=== PATIENT | male | born 1950 | race Caucasian/White ===

== ENCOUNTER 2019-12-17 22:09 | Inpatient (IN) | payer MEDICARE, SELFPAY ==
--- NOTE | 2019-12-17 21:49 | ECG_ITS ---
APPROVED REPORT Exam: Resting ECG HR:108 bpm ECG Measurements Heart Rate 108 AXES MN 108 P 61 QRSd 76 QRS 61 QT 320 T 161 QTc 428 <Conclusion> Sinus tachycardia with short MN Left atrial abnormality Late r wave progression Abnormal ECG Electronically signed by : James Rosenthal, 12/20/2019 13:15:54
[2019-12-17 21:54] VITALS: BP 123/79; PULSE 92; RESP 26; TEMP 36.8; O2SAT 96; BMI 18.4
--- NOTE | 2019-12-17 22:04 | XR_ITS ---
PROCEDURE: XR CHEST AP CLINICAL HISTORY: copd COPD, cough, malaise COMPARISON: CT CHEST WO CON from 12/17/2019 FINDINGS: There is mild cardiomegaly without failure. The mediastinum is widened consistent with mass or adenopathy. There is right apical pleural thickening There is increased density in both lower lobes consistent with pneumonia. No acute bony anomalies. IMPRESSION: Mediastinal widening consistent with mass and/or adenopathy with bilateral pneumonia. Suggest chest CT with contrast for further evaluation Dictated by: Sekou Islas MD 12/18/2019 06:23 Electronically signed by Sekou Islas MD in [place] 12/18/2019 06:23
--- NOTE | 2019-12-17 22:04 | CT_ITS ---
PROCEDURE: CT ABDOMEN PELVIS W CON CLINICAL INDICATION: ruq tenderness Right upper quadrant pain and tenderness, malaise, jaundice, weakness COMPARISON: No exams were available for comparison TECHNIQUE: IV Contrast: 75ML OPTIRAY 350 Oral Contrast 20ml Gastroview Axial images obtained with sagittal and coronal reformats. All CT scans at the facility use one or more dose reduction, viz: automated exposure control, ma/kV adjustment per patient size (including targeted exams where dose is matched to indication, i.e. head), or iterative reconstruction technique. FINDINGS: LOWER THORAX: Bilateral pneumonia with trace left-sided effusion along with mediastinal and left hilar adenopathy. Please see chest CT report for further details. ABDOMEN & PELVIS: There is heterogeneous enhancement pattern of the liver nonspecific. No focal liver lesion is evident. Gallstone is present. The spleen, adrenal glands, and pancreas have an unremarkable appearance. No pancreatic mass. No biliary dilatation. No intestinal obstruction or free air. No evidence of appendicitis or diverticulitis. There is scattered thickened small bowel loops as well as thickening of the cecum and ascending colon and descending colon. There is a medium-sized left inguinal hernia which contains a loop of sigmoid colon and a small amount of fluid. No evidence of bowel obstruction. The prostate is mildly enlarged at 4.6 cm. There is a small amount of fluid in the pelvis.. Adenopathy is noted in the periportal region measuring up to 1.6 cm in there is mild retroperitoneal adenopathy on the left superiorly at 1.3 cm. No pelvic adenopathy. 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 IMPRESSION: 1. Scattered thickened small and large bowel loops suggesting enterocolitis. Small amount of fluid is present in the pelvis. 2. Heterogeneous appearance of the liver which could be seen with hepatitis or early cirrhosis. There is mild hepatomegaly measuring 24 cm in transverse dimension. 3. Mild periportal and retroperitoneal adenopathy 4. Cholelithiasis Dictated by: Sekou Islas MD 12/18/2019 09:53 Electronically signed by Sekou Islas MD in [place] 12/18/2019 09:53
[2019-12-17 22:14] LABS: Basophils # 0.2 K/mm3 (0-0.2); Basophils % 3.1 % (0.1-2.0); Chloride 97 mmol/L (98-107); Eosinophils % 0.4 % (0.1-12.0); Hematocrit 38.4 % (42.0-52.0); Hemoglobin 12.2 g/dL (14.1-18.0); Lymphocytes # 0.9 K/mm3 (0.7-4.5); Lymphocytes % 17.4 % (10-50); Mean Corpuscular HGB Conc 31.8 g/dL (31.8-35.4); Mean Corpuscular Hemoglobin 31.4 pg (27.0-31.2); Mean Corpuscular Volume 98.8 fl (80-94); Mean Platelet Volume 9.9 fl (7.4-10.4); Monocytes # 0.1 K/mm3 (0.1-1.0); Monocytes % 1.8 % (1.7-9.3); Neutrophils % 77.3 % (37.0-80.0); Platelet Count 56 K/mm3 (142-424); Red Blood Count 3.89 M/mm3 (4.60-6.20); Red Cell Distribution Width 15.5 % (11.5-17.5); Sodium 144 mmol/L (136-145); White Blood Count 5.2 K/mm3 (4.8-10.8)
[2019-12-17 22:17] LABS: Alanine Aminotransferase 228 U/L (12-78); Alkaline Phosphatase 273 U/L (38-126); Aspartate Amino Transferase 259 U/L (17-59); Bilirubin,Total 9.2 mg/dl (0.2-1.3); Blood Urea Nitrogen 44 mg/dl (9-20); Calcium 9.7 mg/dl (8.4-10.2); Carbon Dioxide 38 mmol/L (22.0-30.0); Creatinine Clearance Estimated 39 mL/min (50-200); Estimated Glomerular Filt Rate 50 ml/min (>60); GFR (African American) 60 ML/MIN (>60); Glucose 119 mg/dl (74-100)
[2019-12-17 22:18] LABS: Albumin Level 3.4 g/dl (3.5-5.0); Globulin 3.4 g/dL (1.3-3.2); Total Protein,Serum 6.8 g/dl (6.3-8.2)
[2019-12-17 22:19] LABS: Ammonia 9 umol/L (9-30)
[2019-12-17 22:24] LABS: Strep Scrn Group A (Rapid) Negative (Negative)
[2019-12-17 22:25] LABS: Lactic Acid 5.7 mmol/L (0.7-2.1)
--- NOTE | 2019-12-17 22:25 | PC.NURSE ---
critical lactate result to dr colindres
[2019-12-17 22:28] LABS: NT Pro Brain Natriuretic Pep. 1380 pg/mL (0-125)
--- NOTE | 2019-12-17 22:28 | HMH.EDNVD ---
ED Disposition Clinical Impression: Severe sepsis with acute organ dysfunction, Elevated LFTs, Elevated erythrocyte sedimentation rate, Elevated C-reactive protein (CRP), Weight loss, abnormal, Mediastinal adenopathy, JOSELINE (acute kidney injury) CAP (community acquired pneumonia) Qualifiers: Laterality: unspecified laterality Qualified Code(s): J18.9 - Pneumonia, unspecified organism Disposition: Admitted As Inpatient Condition on Discharge: Serious Referrals: Provider,Referral, MD [Primary Care Provider] - - Critical Care Critical Care Time: Yes Attestation: On 12/17/19, the high probability of a clinically significant, sudden or life threatening deterioration of the following system(s) required my full and direct attention, intervention and personal management. The time I documented below is in addition to time spent performing reported procedures but includes the following listed in this critical care notation. Total Critical Care Time: 60 Vital system(s) involved:: Metabolic Failure My critical care processes included: Assessment & monitoring of V/S, Initial and Re-exams, Data Review/Interpretation, Coordinating Care, Medication Orders and management Medical Decision Making - Medical Records Medical records reviewed: Yes: I reviewed the patient's medical records. - Bay Inquiry Pt receiving controlled substance: No Vital Signs: 12/17/19 21:54 12/17/19 22:32 12/17/19 23:01 Temperature 98.2 F Temperature Source Oral Pulse Rate [Right Brachial] 92 H 99 H 81 Respiratory Rate 26 H 19 16 Blood Pressure [Right Arm] 123/79 137/92 H 131/73 Blood Pressure Mean [Right Arm] 93 107 92 Blood Pressure Source [Right Arm] Automatic Cuff Automatic Cuff Blood Pressure Position [Right Arm] Supine Sitting Sitting 02 Sat by Pulse Oximetry 96 97 98 Oxygen Delivery Method Room Air Room Air Room Air - Lab Data Lab results reviewed: Yes: I reviewed the patient's lab results. Lab Results 12/17/19 22:00: WBC 5.2, RBC 3.89 L, Hgb 12.2 L, Hct 38.4 L, MCV 98.8 H, MCH 31.4 H, MCHC 31.8, RDW 15.5, Plt Count 56 L, MPV 9.9, Neut % (Auto) 77.3, Lymph % (Auto) 17.4, Curry % (Auto) 1.8, Eos % (Auto) 0.4, Baso % (Auto) 3.1 H, Neut # (Auto) 4.0, Lymph # (Auto) 0.9, Curry # (Auto) 0.1, Eos # (Auto) 0.0, Baso # (Auto) 0.2 12/17/19 22:00: Sodium 144, Potassium 3.0 L, Chloride 97 L, Carbon Dioxide 38 H, Anion Gap 12.0, BUN 44 H, Creatinine 1.40 H, Estimated Creat Clear 39, Estimated GFR 50 L, Est GFR ( Amer) 60, Glucose 119 H, Calcium 9.7, Total Bilirubin 9.2 H, AST 259 H, ALT 228 H, Alkaline Phosphatase 273 H, Troponin I 0.03, Total Protein 6.8, Albumin 3.4 L, Globulin 3.4 H, Albumin/Globulin Ratio 1.0 L, TSH 0.52, Thyroxine (T4) 9.8 12/17/19 22:00: Lactate 5.7 H 12/17/19 22:00: Ammonia 9 12/17/19 22:00: NT-Pro-B Natriuret Pep 1380 H 12/17/19 22:00: ESR 92 H 12/17/19 22:00: C-Reactive Protein 350.4 H 12/17/19 22:00: Amylase 107 12/17/19 22:00: Lipase 100 12/17/19 22:13: Influenza Type A Ag Negative, Influenza Type B Ag Negative 12/17/19 22:13: Group A Strep Rapid Negative 12/17/19 23:25: Urine Color [place], Urine Appearance Clear, Urine pH 5.5, Ur Specific [place] 1.025, Urine Protein 1+, Urine Glucose (UA) Negative, Urine Ketones Negative, Urine Blood 3+, Urine Nitrate Negative, Urine Bilirubin 3+ A, Urine Urobilinogen 1.0, Ur Leukocyte Esterase Negative, Urine RBC 20-50, Urine WBC 5-10, Amorphous Sediment 2+, Urine Bacteria 2+, Hyaline Casts 10-20, Fine Granular Casts 3-5, Urine Mucus 2+ Result diagrams: 12/17/19 22:00 12/17/19 22:00 Orders (Tests/Meds): ED MEDICATIONS Generic Name Dose Route Start Last Admin Trade Name Freq PRN Reason Stop Dose Admin Sodium Chloride 1,000 mls @ 999 mls/hr 12/17/19 22:15 12/17/19 22:24 Sod Chlor 0.9% 1000ml Bag IV 12/17/19 23:15 999 mls/hr .Q1H1M JAMES Administration Levofloxacin/Dextrose 500 mg in 100 mls @ 100 mls/hr 12/18/19 01:30 Levaquin 500mg/100ml Premix IV 01/01/20 01:29
[2019-12-17 22:30] LABS: Troponin I 0.03 ng/ml (0.00-0.034)
[2019-12-17 22:32] VITALS: BP 137/92; PULSE 99; RESP 19; O2SAT 97
[2019-12-17 22:35] LABS: T4 (Thyroxine) 9.8 ug/dl (5.53-11.0)
--- NOTE | 2019-12-17 22:44 | PC.NURSE ---
pt to radiology. 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
[2019-12-17 22:49] LABS: Thyroid Stimulating Hormone 0.52 uIU/mL (0.465-4.68)
[2019-12-17 23:00] LABS: Erythrocyte Sedimentation Rate 92 mm/hr (0-20)
[2019-12-17 23:01] VITALS: BP 131/73; PULSE 81; RESP 16; O2SAT 98
--- NOTE | 2019-12-17 23:28 | CT_ITS ---
PROCEDURE: CT CHEST WO CON CLINICAL INDICATION: cough COPD, cough, malaise, jaundice, mediastinal mass on chest x-ray COMPARISON: CT ABDOMEN PELVIS W CON from 12/17/2019 TECHNIQUE: Axial images obtained with sagittal and coronal reformats. All CT scans at the facility use one or more dose reduction, viz: automated exposure control, ma/kV adjustment per patient size (including targeted exams where dose is matched to indication, i.e. head), or iterative reconstruction technique. FINDINGS: There is increased soft tissue density in the right lower neck anteriorly. This is incompletely imaged. CT neck with contrast suggested for further evaluation. A mediastinal mass is present in the right paratracheal region extending cephalad caudad for length of 7 cm and measuring up to 4.7 cm AP and 3.7 cm transverse. Subcarinal mass is also noted and may actually be extension of the right paratracheal mass. This mass measures 3.8 by 2 cm. There is also increased soft tissue density in the left perihilar region consistent with hilar mass measuring 3.5 cm. Soft tissue mass also present in the mediastinum on the left anteriorly at 5.3 by 3.8 cm. These findings are consistent with extensive mediastinal and left hilar adenopathy. Mediastinal adenopathy on the right is causing compression upon the superior vena cava. There are scattered areas of infiltrate/pneumonia in the right upper lobe, right lower lobe, right middle lobe, left upper lobe, and left lower lobe. There is trace left-sided effusion. There is mild thickening of the pericardium anteriorly. There is also axillary adenopathy on the right. No acute bony findings. Upper abdominal images are unremarkable. IMPRESSION: 1. Diffuse mediastinal, left hilar, right axillary, and right lower neck adenopathy. Lymphoma or metastatic disease is considered. 2. Multifocal bilateral pneumonia with trace left-sided effusion Dictated by: Sekou Islas MD 12/18/2019 09:39 Electronically signed by Sekou Islas MD in [place] 12/18/2019 09:39
[2019-12-17 23:31] LABS: Microscopic, Urine URINE MICROSCOPIC (MICROSCOPIC)
[2019-12-17 23:31] LABS: C-Reactive Protein 350.4 mg/L (0-4)
[2019-12-17 23:39] LABS: Appearance,Urine CLEAR (Clear); Blood, Urine 3+ (Negative); Glucose,Urine (UA) Negative (Negative); Ketones,Urine Negative (Negative); Leukocyte Esterase,Urine Negative (Negative); Nitrate,Urine Negative (Negative); PH,Urine 5.5 (5.0-8.5); Protein,Urine 1+ (Negative); Specific Gravity, Urine 1.025 (1.005-1.030)
[2019-12-17 23:41] LABS: Bilirubin,Urine 3+ (Negative); Color,Urine Orange (Yellow)
[2019-12-17 23:47] LABS: Amylase 107 U/L (30-110); Lipase 100 U/L (23-300)
[2019-12-17 23:56] LABS: Amorphous Sediment,Urine 2+ /lpf; Bacteria,Urine 2+ /lpf; Mucus,Urine 2+ /lpf; RBC,Urine 20-50 #/hpf (0-3)
[2019-12-18] VITALS (11 sets, daily range): BP systolic 131–156; BP diastolic 75–93; PULSE 81–120; RESP 18–26; TEMP 35.9–37.2; O2SAT 84–98; BMI 15.8; BMI 16.0
--- NOTE | 2019-12-18 01:03 | PC.NURSE ---
on phone with dr flores
--- NOTE | 2019-12-18 01:05 | PC.NURSE ---
discussed source of infection with md. awaiting definitive source.
[2019-12-18 01:42] LABS: Prothrombin Time 11.4 seconds (9.4-11.8)
--- NOTE | 2019-12-18 01:49 | PC.NURSE ---
I called and spoke with the patients sister who is next of kin and advised her we would be admitting Mr. Howell with sepsis and liver failure. They will check on him later
--- NOTE | 2019-12-18 02:02 | PC.NURSE ---
pt arrived to floor via wheelchair from ED
--- NOTE | 2019-12-18 02:04 | PC.NURSE ---
large loose stool noted. spongebath given.
[2019-12-18 02:08] LABS: Reflex Lactic Add Lactic Reflex
--- NOTE | 2019-12-18 02:36 | PC.NURSE ---
PT IS A POOR HISTORIAN ON ADMISSION. FOR EXAMPLE: WHEN ASKED, DO YOU HAVE ANY ISSUES WITH YOUR HEART OR LUNGS? PT STATES I DO NOT KNOW.
[2019-12-18 02:52] LABS: Troponin I 0.04 ng/ml (0.00-0.034)
[2019-12-18 02:55] LABS: Lactic Acid Follow Up (RFLX 1) 3.9 mmol/L (0.7-2.1)
[2019-12-18 04:09] LABS: Reflex Lactic (2 hrs) Add Lactic Reflex
[2019-12-18 04:46] LABS: Basophils % 0.9 % (0.1-2.0); Eosinophils % 0.2 % (0.1-12.0); Hematocrit 34.8 % (42.0-52.0); Hemoglobin 11.1 g/dL (14.1-18.0); Lymphocytes # 0.6 K/mm3 (0.7-4.5); Lymphocytes % 13.1 % (10-50); Mean Corpuscular HGB Conc 32.1 g/dL (31.8-35.4); Mean Corpuscular Hemoglobin 31.3 pg (27.0-31.2); Mean Corpuscular Volume 97.5 fl (80-94); Monocytes # 0.1 K/mm3 (0.1-1.0); Monocytes % 2.2 % (1.7-9.3); Neutrophils # 3.6 K/mm3 (1.8-7.8); Neutrophils % 83.6 % (37.0-80.0); Red Blood Count 3.56 M/mm3 (4.60-6.20); Red Cell Distribution Width 15.6 % (11.5-17.5); White Blood Count 4.3 K/mm3 (4.8-10.8)
[2019-12-18 04:49] LABS: Chloride 101 mmol/L (98-107); Sodium 146 mmol/L (136-145)
[2019-12-18 04:52] LABS: Alanine Aminotransferase 179 U/L (12-78); Alkaline Phosphatase 234 U/L (38-126); Anion Gap 12.9 mEq/L (5-15); Aspartate Amino Transferase 204 U/L (17-59); Bilirubin,Total 7.9 mg/dl (0.2-1.3); Blood Urea Nitrogen 37 mg/dl (9-20); Carbon Dioxide 35 mmol/L (22.0-30.0); Creatinine Clearance Estimated 31 mL/min (50-200); Estimated Glomerular Filt Rate 46 ml/min (>60); GFR (African American) 56 ML/MIN (>60)
[2019-12-18 04:53] LABS: Albumin Level 2.8 g/dl (3.5-5.0); Albumin/Globulin Ratio 0.9 (1.1-1.8); Calcium 8.9 mg/dl (8.4-10.2); Globulin 3.1 g/dL (1.3-3.2); Glucose 104 mg/dl (74-100); Total Protein,Serum 5.9 g/dl (6.3-8.2)
[2019-12-18 04:59] LABS: Lactic Acid Follow up (RFLX 2) 3.2 mmol/L (0.7-2.1)
[2019-12-18 05:00] LABS: Platelet Count 45 K/mm3 (142-424)
[2019-12-18 05:01] LABS: Potassium 2.9 mmoL/L (3.5-5.1)
[2019-12-18 05:04] LABS: Troponin I 0.04 ng/ml (0.00-0.034)
--- NOTE | 2019-12-18 05:07 | PC.NURSE ---
A&0X3, CAN TELL ALL BUT YEAR. PT TOLERATING RA WELL THIS SHIFT. PT WEAK, X2 ASSIST FROM WHEELCHAIR TO BED. PT IS A POOR HISTORIAN, STATING I DON'T KNOW TO MANY OF OUR QUESTIONS. PT APPEARS VERY SMALL WITH BONY PROMINENCES PRESENT. F/C PRESENT DRAINING DARK YELLOW URINE. PT HAS NO C/O PAIN, NA, VO, OR SOA THIS SHIFT. PT RESTING IN BED WITH EYES CLOSED. VSS WILL CONTINUE TO MONITOR.
[2019-12-18 05:25] LABS: Magnesium 2.6 mg/dl (1.6-2.3)
--- NOTE | 2019-12-18 07:28 | P.CONPHA_ITS ---
[facility] Pharmacy VTE Monitoring - Patient Demographics Admission date: 12/17/19 Report Date: 12/18/19 Time: 07:28 Allergies/Adverse Reactions: Patient Allergies No Known Allergies Allergy (Verified 12/17/19 22:03) Height: 1.75 m Weight: 48.563 kg Patient Problems: Current Active Problems Severe sepsis with acute organ dysfunction (Acute) CAP (community acquired pneumonia) (Acute) Elevated LFTs (Acute) Elevated erythrocyte sedimentation rate (Acute) Elevated C-reactive protein (CRP) (Acute) Weight loss, abnormal (Acute) Mediastinal adenopathy (Acute) JOSELINE (acute kidney injury) (Acute) - VTE Risk Labs: VTE Related Lab Results Hgb 11.1 g/dL (14.1-18.0) L 12/18/19 04:20 Hct 34.8 % (42.0-52.0) L 12/18/19 04:20 Plt Count 45 K/mm3 (142-424) L* 12/18/19 04:20 PT 11.4 seconds (9.4-11.8) 12/18/19 00:00 INR 1.10 (0.9-1.1) 12/18/19 00:00 BUN 37 mg/dl (9-20) H 12/18/19 04:20 Creatinine 1.50 mg/dl (0.66-1.25) H 12/18/19 04:20 Estimated Creat Clear 31 mL/min (50-200) 12/18/19 04:20 VTE Score: 1 VTE Risk Level: Very Low Risk - Prophylaxis VTE Prophylaxis Ordered?: Yes Types of VTE Prophylaxis: TEDS Knee High Location of Applied Device: Bilateral Lower Extremeties - VTE Diagnosis Confirmed Treatment or plan recommended: Continue Current Treatment
--- NOTE | 2019-12-18 07:35 | HMH.PHAINT ---
MED REC-PATIENT DOES NOT TAKE ANY HOME MEDICATIONS
--- NOTE | 2019-12-18 08:02 | HMH.HP ---
*Admission Date: 12/17/19 *Chief complaint: jaundice *History of present illness: 69-year-old gentleman with no significant past medical history per his report, on occasional Advil at home, and extensive tobacco use history, who presented to the ER last night via EMS due to weakness and jaundice. Patient's family, nephew checks on him regularly, contacted EMS due to concern for patient being more weak, having a cough, body aches, and jaundice. Patient states he came to the hospital because he tried to start his lawnmower and was too weak to mow the lawn. Upon presentation to the ER he was found to have sepsis criteria with tachycardia greater than 90, tachypnea greater than 20, and findings of pneumonia on chest x-ray. Labs significant for elevated creatinine with unknown baseline, elevated liver enzymes, thrombocytopenia, and elevated bilirubin. Further work-up including CT of chest abdomen and pelvis showed diffuse lymphadenopathy in abdomen with significant burden of mediastinal masses suspicious of neoplastic process. Patient states he lives by himself. Of note his brother used to live with him was a patient several months of go of ours at [facility]. He is currently at a intermediate due to debility and failure to thrive. He states he has had a cough for more than 4 to 5 months. Had an extensive smoking history until recently when he quit smoking somewhere between 2 and 5 months ago. Reports poor appetite, upset stomach. Overall states he just does not feel well. Feels more tired with some intermittent aches and pains in his chest and extremities. Cough reported as nonproductive. Has had no travel or contact with known COVID cases. Is afebrile. Not requiring oxygen. With fluid resuscitation overnight, patient appears more comfortable and in less distress. Initiated on antibiotics for pneumonia. Given endorgan damage, elevated lactate, and vitals consistent with Sirs, patient admitted for severe sepsis. [facility] History I have reviewed the patient's past medical history: Yes (Patient denies any significant medical history) *Have you ever received a pneumonia vaccine?: No *Have you received a flu vaccine this season?: No Other Surgeries: Yes: No Previous Surgery - *Social History Educational Level: Attended High School Smoking Status: Former smoker Tobacco Type: cigarettes # Packs/Day (cigarettes): 1 Alcohol Intake: never *Occupational Status:: retired *Travel in the last 8 weeks: None Family Hx:: Unable to obtain Review of Systems - Review of Systems Review of systems:: pertinent systems reviewed and negative unless documented below (14 point review of systems performed, pertinent positives and negatives as per HPI) - *Neurologic Reports weakness, Denies localized weakness, Denies headache(s), Denies seizure-like activity Meds Home Medications Medication Instructions Recorded Confirmed Type No Known Home Medications 12/17/19 12/17/19 History Allergies Allergy/AdvReac Type Severity Reaction Status Date / Time No Known Allergies Allergy Verified 12/17/19 22:03 Exam Vital signs and Labs for Last 24 Hours: Temp Pulse Resp BP Pulse Ox 98.4 F 113 H 18 137/76 90 L 12/18/19 04:00 12/18/19 04:00 12/18/19 04:00 12/18/19 04:00 12/18/19 04:00 Laboratory Results - last 24 hr 12/17/19 22:00: WBC 5.2, RBC 3.89 L, Hgb 12.2 L, Hct 38.4 L, MCV 98.8 H, MCH 31.4 H, MCHC 31.8, RDW 15.5, Plt Count 56 L, MPV 9.9, Neut % (Auto) 77.3, Lymph % (Auto) 17.4, [place] % (Auto) 1.8, Eos % (Auto) 0.4, Baso % (Auto) 3.1 H, Neut # (Auto) 4.0, Lymph # (Auto) 0.9, [place] # (Auto) 0.1, Eos # (Auto) 0.0, Baso # (Auto) 0.2 12/17/19 22:00: Sodium 144, Potassium 3.0 L, Chloride 97 L, Carbon Dioxide 38 H, Anion Gap 12.0, BUN 44 H, Creatinine 1.40 H, Estimated Creat Clear 39, Estimated GFR 50 L, Est GFR ( Amer) 60, Glucose 119 H, Calcium 9.7, Total Bilirubin 9.2 H, AST 259 H, ALT 228 H, Alkaline Phosphatase 273 H, Troponin I 0.03, Tot
--- NOTE | 2019-12-18 10:01 | PC.NURSE ---
THIS RN COMPLETED A BEDSIDE SWALLOW EXAM. PATIENT DID NOT COUGH BUT STATED IT WILL NOT GO DOWN. MD HAS BEEN NOTIFIED.
--- NOTE | 2019-12-18 11:16 | FL_ITS ---
PROCEDURE: FL BARIUM SWALLOW MODIFIED CLINICAL INDICATION: Dysphagia, aspiration COMPARISON: No exams were available for comparison TECHNIQUE: Patient administered varying consistencies of barium contrast, while viewed in lateral position under real-time fluoroscopy with cine recording. FLUOROSCOPY TIME:2 minutes and 20 seconds The study was performed in conjunction with speech pathologist. Please see that report & recommendations. FINDINGS: Patient was given varying consistencies of barium. There was spillage into the oropharynx. Moderate amount of stasis is noted in the vallecular and piriform sinuses. There was marked delayed initiation of the swallowing mechanism with spillage in stasis. There was aspiration of thin liquids. There is mild distention of the pharynx... IMPRESSION: Severe stasis with spillage and delay in initiation of the swallowing mechanism with aspiration Please see speech pathologist report and recommendations. The Dictated by: Sekou Islas MD 12/21/2019 15:27 Electronically signed by Sekou Islas MD in [place] 12/21/2019 15:27
--- NOTE | 2019-12-18 14:28 | HMH.SLMBS2 ---
Speech & Language Evaluation Speech/Language Mod Barium Swallow Start: 12/18/19 11:16 Freq: ONCE Status: Complete Protocol: Document 12/18/19 14:11 [place] (Rec: 12/18/19 14:27 M[place]ISON [id number]) General Information General Current Food Consistancy NPO Dentition Poor Dentition Oxygen Status Nasal Cannula Facial Symmetry Symmetrical Patient Orientation Person Ability to Follow Directions Fair Communication Ability Moderate Impairment MBS Recommendations Diet Dietary Recommendations NPO Referrals/Other Recommended Referrals Alternate Feeding Method Mod Barium Swallow Impressions Summary and Impressions Oral Phase Impression Severe Impairment Oral Phase Summary Mr. Howell was given the following consistenices: thins via straw and open cup, nectar via straw, and pureed. Mr. Howell has decreased suck resistance with liquids and decreased swallow reflex. Pharyngeal Phase Impression Severe Impairment Pharyngeal Phase Summary Mr. Howell did exhibit aspiration of all consistencies during the swallow and on residue from valleculae and pyriform sinuses after the swallow. Significant residue noted in the pyriform sinuses and moderate residue in the valleculae that could not be cleared. It is recommended that he remain NPO until family decides if alternate feeding method is wanted. Speech/Language MBS Assessment/Goals/Plan Assessment Date of Evaluation: 12/18/19 Evaluation Type Initial Certification Assessment/Problems Dysphagia Does Patient Qualify for Service No Qualify/Failure Comment Due to underlying factors, patient is not a candidate for therapy at this time. Recommendations PHYSICIAN CERTIFICATION: The specified therapy services are required, authorized, and reviewed every 30 days. Diet Recommendations Pleasure Feedings Comment If patient wishes to continue with pleasure feedings, a diet of pureed with thin liquids is recommended. Plan Pt/Guardian verbally ack understanding Yes: and RN notified of dx/prognosis/goals
--- NOTE | 2019-12-18 14:49 | DIET.NUTRFU ---
Nutritional assessment completed, pt with severe protein calorie malnutrition. Also with cholelithiasis. Failed speech eval. Continuing to monitor speech and GI recommendations in addition to family/pt wishes and will provide appropriate protein supplemented diet as indicated. Pt is currently NPO.
--- NOTE | 2019-12-18 15:03 | CARE MANAGER ---
Spoke with patient regarding next step in care of deciding whether to pursue the cause of the masses or exploring other options such as Hospice. Patient had asked Dr. Ramirez to speak with his sister, Jackie, and nephew, Дмитрий this morning. Dr. Ramirez did and explained the situation to the family members. The patient states he wants to let his family decide what step to take. The family expressed to Dr. Ramirez that they did not believe the patient would want to actively pursue any further treatment or testing of the masses. They agreed Hospice may be appropriate. I spoke with patient and explained that the family thought this may be appropriate and asked him what he wanted to do. The patient wishes to be referred to Hospice upon discharge. We also discussed how he would not be safe to return home by himself which he understands. We discussed different nursing homes that could be potentially referred to as his brother is in [facility]. He does not wish to go to [facility] as he thinks it would be too hard on his brother. Hospice referral can be made once placement is found for patient. If patient's condition deteriorates over the weekend Hospice could be consulted sooner. Jeffery, RN/BSN Sheet Metal Assembler
[2019-12-18 16:50] LABS: Alanine Aminotransferase 154 U/L (12-78); Albumin Level 2.8 g/dl (3.5-5.0); Albumin/Globulin Ratio 0.9 (1.1-1.8); Alkaline Phosphatase 238 U/L (38-126); Anion Gap 9.2 mEq/L (5-15); Aspartate Amino Transferase 195 U/L (17-59); Bilirubin,Total 8.2 mg/dl (0.2-1.3); Blood Urea Nitrogen 39 mg/dl (9-20); Calcium 9.3 mg/dl (8.4-10.2); Carbon Dioxide 33 mmol/L (22.0-30.0); Chloride 104 mmol/L (98-107); Creatinine Clearance Estimated 31 mL/min (50-200); Estimated Glomerular Filt Rate 46 ml/min (>60); GFR (African American) 56 ML/MIN (>60); Glucose 87 mg/dl (74-100); Lactate Dehydrogenase 956 U/L (313-618); Magnesium 2.6 mg/dl (1.6-2.3); Potassium 3.2 mmoL/L (3.5-5.1); Sodium 143 mmol/L (136-145); Total Protein,Serum 5.8 g/dl (6.3-8.2)
[2019-12-18 17:29] LABS: Uric Acid 7.8 mg/dl (3.5-8.5)
[2019-12-18 17:41] LABS: Lactic Acid 2.3 mmol/L (0.7-2.1)
--- NOTE | 2019-12-18 18:54 | PC.NURSE ---
DNR obtained via rn and md at bedside.
--- NOTE | 2019-12-18 20:01 | PC.NURSE ---
THIS RN RECEIVED PHONE CALL FROM [facility]. THIS RN WAS TO INFORM DR. MUJICA OF PATIENT OKAY TO PLEASURE FEEDING OF PUREE AND THIS LIQUIDS. THIS RN REPORTED MESSAGE TO AMELIA MARR RN WHEN SHE TOOK OVER CARE.
[2019-12-18 21:26] LABS: Reflex Lactic Add Lactic Reflex
[2019-12-18 21:59] LABS: Lactic Acid Follow Up (RFLX 1) 2.1 mmol/L (0.7-2.1)
[2019-12-18 23:44] LABS: Reflex Lactic (2 hrs) Add Lactic Reflex
[2019-12-19] VITALS (7 sets, daily range): BP systolic 136–160; BP diastolic 76–93; PULSE 87–100; RESP 16–20; TEMP 35.9–36.8; O2SAT 92–98
[2019-12-19 00:36] LABS: Lactic Acid Follow up (RFLX 2) 2.3 mmol/L (0.7-2.1)
--- NOTE | 2019-12-19 06:05 | PC.NURSE ---
Pt is A&O to person, place, and situation. Pt has had some difficulty with placing the current yr or month. Pt has denied any pain or N/V/D. Pt has been very fatigued and falls asleep quickly after care and interaction with staff. Pt has refused a bed bath this shift, reporting to be too tired and maybe in the morning . TEDS refused. Pt kept on 2 L per NC during most of the shift, sats 95-98%. Pt was weaned to 1L NC this early am and he tolerated well. Room air sat was obtained at 93% while asleep so pt has been continued on room air at this time. Scattered wheezing, coarse rhonchi t/o all alexander on auscultation. Pt denies any SOB or dyspnea, non-labored breathing noted with RR 18-23 this shift. ABD is flat, soft, and slightly tender with hernia is noted. Jaundiced appearing sclera and skin-tone. Patent rosario cath, dark enmanuel/tea colored urine draining to gravity. Pt's total urinary output is 450ml and total intake is 1,472ml for a shift total of +1,022ml. Pt has slept quietly t/o most of shift. NSR noted on tele. VSS, call light within reach, will continue to monitor.
[2019-12-19 06:11] LABS: Basophils # 0.1 K/mm3 (0-0.2); Chloride 103 mmol/L (98-107); Eosinophils % 0.3 % (0.1-12.0); Hematocrit 31.3 % (42.0-52.0); Hemoglobin 9.9 g/dL (14.1-18.0); Lymphocytes # 0.6 K/mm3 (0.7-4.5); Lymphocytes % 11.4 % (10-50); Mean Corpuscular HGB Conc 31.8 g/dL (31.8-35.4); Mean Corpuscular Hemoglobin 31.2 pg (27.0-31.2); Mean Corpuscular Volume 98.2 fl (80-94); Mean Platelet Volume 9.3 fl (7.4-10.4); Monocytes # 0.1 K/mm3 (0.1-1.0); Monocytes % 1.8 % (1.7-9.3); Neutrophils # 4.1 K/mm3 (1.8-7.8); Neutrophils % 85.5 % (37.0-80.0); Red Blood Count 3.18 M/mm3 (4.60-6.20); White Blood Count 4.8 K/mm3 (4.8-10.8)
[2019-12-19 06:12] LABS: Potassium 3.5 mmoL/L (3.5-5.1); Sodium 144 mmol/L (136-145)
[2019-12-19 06:14] LABS: Alanine Aminotransferase 138 U/L (12-78); Aspartate Amino Transferase 190 U/L (17-59); Blood Urea Nitrogen 38 mg/dl (9-20); Creatinine Clearance Estimated 47 mL/min (50-200); Estimated Glomerular Filt Rate 74 ml/min (>60); GFR (African American) 89 ML/MIN (>60)
[2019-12-19 06:15] LABS: Albumin Level 2.7 g/dl (3.5-5.0); Alkaline Phosphatase 234 U/L (38-126); Anion Gap 9.5 mEq/L (5-15); Bilirubin,Total 7.9 mg/dl (0.2-1.3); Carbon Dioxide 35 mmol/L (22.0-30.0); Globulin 2.8 g/dL (1.3-3.2); Glucose 117 mg/dl (74-100); Magnesium 2.6 mg/dl (1.6-2.3); Total Protein,Serum 5.5 g/dl (6.3-8.2)
[2019-12-19 07:20] LABS: Platelet Count 42 K/mm3 (142-424)
[2019-12-19 07:22] LABS: MANUAL DIFFERENTIAL MANUAL DIFFERENTIAL (MANUAL DIFF)
--- NOTE | 2019-12-19 07:36 | PC.NURSE ---
Lab notified this RN of critical platelets of 42. Dr Olmedo is on-call for Dr. Ramirez and was notified of the result. No new orders at this time.
[2019-12-19 07:46] LABS: Lymphocytes % 14 % (10-50); Monocytes % 2 % (2-9); Neutrophils % 83 % (42-76); Total Cells Counted 100
[2019-12-19 07:47] LABS: Acanthocytes 1+; Nucleated Red Blood Cells 3; Platelet Estimate Marked Decrease; Poikilocytosis 1+
[2019-12-19 08:50] LABS: Covid-19 Nasal PCR Sendout Lex Not Detected
--- NOTE | 2019-12-19 09:31 | HMH.ACPN2 ---
Internal Medicine - PN: Subj *Date: 12/19/19 *Time: 09:31 Interval history: Patient is done well overnight. No significant pain complaints. He feels tired and thirsty. Otherwise denies pain. 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 with him and he continues to understand the consequences and continues to indicate that he does not wish aggressive therapy Exam Vital signs and Labs for Last 24 Hours: Temp Pulse Resp BP Pulse Ox 97.0 F L 91 H 20 142/77 H 96 12/19/19 08:00 12/19/19 08:00 12/19/19 08:00 12/19/19 08:00 12/19/19 08:00 Laboratory Results - last 24 hr 12/18/19 16:15: COVID-19 (JENNIFER) Not detected 12/18/19 16:15: Sodium 143, Potassium 3.2 L, Chloride 104, Carbon Dioxide 33 H, Anion Gap 9.2, BUN 39 H, Creatinine 1.50 H, Estimated Creat Clear 31, Estimated GFR 46 L, Est GFR ( Amer) 56 L, Glucose 87, Calcium 9.3, Magnesium 2.6 H, Total Bilirubin 8.2 H, AST 195 H, ALT 154 H, Alkaline Phosphatase 238 H, Lactate Dehydrogenase 956 H, Total Protein 5.8 L, Albumin 2.8 L, Globulin 3.0, Albumin/Globulin Ratio 0.9 L 12/18/19 16:15: Uric Acid 7.8 12/18/19 17:10: Lactate 2.3 H 12/18/19 21:30: Lactate 2.1 12/18/19 23:55: Lactate 2.3 H 12/19/19 05:30: WBC 4.8, RBC 3.18 L, Hgb 9.9 L, Hct 31.3 L, MCV 98.2 H, MCH 31.2, MCHC 31.8, RDW 16.0, Plt Count 42 L*, MPV 9.3, Neut % (Auto) 85.5 H, Lymph % (Auto) 11.4, [place] % (Auto) 1.8, Eos % (Auto) 0.3, Baso % (Auto) 1.0, Neut # (Auto) 4.1, Lymph # (Auto) 0.6 L, [place] # (Auto) 0.1, Eos # (Auto) 0.0, Baso # (Auto) 0.1, Total Counted 100, Neutrophils % (Manual) 83 H, Lymphocytes % (Manual) 14, Monocytes % (Manual) 2, Metamyelocytes % 1.0, Nucleated RBCs 3, Platelet Estimate Marked decrease, Poikilocytosis 1+, Acanthocytes (Spur) 1+ 12/19/19 05:30: Sodium 144, Potassium 3.5, Chloride 103, Carbon Dioxide 35 H, Anion Gap 9.5, BUN 38 H, Creatinine 1.00 D, Estimated Creat Clear 47, Estimated GFR 74, Est GFR ( Amer) 89 D, Glucose 117 H D, Calcium 9.0, Magnesium 2.6 H, Total Bilirubin 7.9 H, AST 190 H, ALT 138 H, Alkaline Phosphatase 234 H, Total Protein 5.5 L, Albumin 2.7 L, Globulin 2.8, Albumin/Globulin Ratio 1.0 L I & O for Last 24 hours: Intake & Output 12/16/19 12/17/19 12/18/19 12/19/19 11:59 11:59 11:59 11:59 Intake Total 3203 / 3203 1712 / 1712 Output Total 350 / 350 950 / 950 Balance 2853 / 2853 762 / 762 Weight 107 lb 1 oz 108 lb 0.424 oz Microbiology Reports for the Last 24 Hours: Microbiology 12/17/19 23:25 Urine,Catheterized Urine Culture - Preliminary NO GROWTH AFTER 24 HOURS Narrative: Constitutional moderate distress, cachectic, chronically ill appearing Comments: Speech difficult to understand, disheveled, bitemporal wasting, unkempt - *Routine HEENT Exam Head: Present: normocephalic Eye: Present: EOMI, PERRL ENT: Present: mucous membranes moist Comments: Poor dentition, loss of periorbital fat. - *Routine Neck Exam Present: supple, lymphadenopathy Comments: Supraclavicular lymphadenopathy on right side of neck - Routine Chest/Breast/Axilla Exam Chest wall: Absent: tenderness (Prominent ribs) - *Routine Respiratory Exam Present: prolonged expiratory phase Comments: Diffuse wheeze, rhonchi, gurgles in the lungs bilaterally that are worse in the posterior lung alexander. - *Routine Cardiovascular Exam Present: RRR - *Routine Abdominal Exam Present: soft, normoactive bowel sounds, tenderness (Diffuse nonfocal tenderness, no appreciable organomegaly.), hernia (Inguinal hernia that is reducible and nonpainful) - *Routine Exam Penile: Absent: swelling, lesions Scrotal: Present: hernia (non-Tender left-sided inguinal hernia) - *Routine Extremities Exam Present: edema (1+ to ankles. Thin extremities with loss of muscle mass.). Absent: cyanosis, clubbing - *Routine Skin Exam Present: warm. Absent: rash Comments: Multiple ecchymoses on
--- NOTE | 2019-12-19 10:11 | PC.NURSE ---
Dr Rosenthal and Ashley notified of negative covid results, faxed to [facility].
--- NOTE | 2019-12-19 18:23 | PC.NURSE ---
Pt has become increasingly more despondent throughout this shift. Refuses to eat supper, and ate only a few bites of breakfast and lunch. UOP has been only 200ml this shift. Pt received bath and cleaned under fingernails this shift. There is some edema noted on right hand that was not present when this shift began. IVF continues at 100ml/hr as ordered.
[2019-12-20] VITALS: BP 154/98; PULSE 90; RESP 20; TEMP 36.5; O2SAT 94
[2019-12-20 04:00] VITALS: BP 152/75; PULSE 83; RESP 20; TEMP 36.4; O2SAT 92
--- NOTE | 2019-12-20 04:29 | HMH.ACPN2 ---
Internal Medicine - PN: Subj *Date: 12/20/19 *Time: 04:29 Interval history: Patient awakens easily this morning. Has no complaints of pain right now, did receive some pain medication last night, remains somewhat thirsty but not hungry. Exam Vital signs and Labs for Last 24 Hours: Temp Pulse Resp BP Pulse Ox 97.6 F 83 20 152/75 H 92 L 12/20/19 04:00 12/20/19 04:00 12/20/19 04:00 12/20/19 04:00 12/20/19 04:00 Laboratory Results - last 24 hr 12/18/19 16:15: COVID-19 (JENNIFER) Not detected 12/19/19 05:30: WBC 4.8, RBC 3.18 L, Hgb 9.9 L, Hct 31.3 L, MCV 98.2 H, MCH 31.2, MCHC 31.8, RDW 16.0, Plt Count 42 L*, MPV 9.3, Neut % (Auto) 85.5 H, Lymph % (Auto) 11.4, [place] % (Auto) 1.8, Eos % (Auto) 0.3, Baso % (Auto) 1.0, Neut # (Auto) 4.1, Lymph # (Auto) 0.6 L, [place] # (Auto) 0.1, Eos # (Auto) 0.0, Baso # (Auto) 0.1, Total Counted 100, Neutrophils % (Manual) 83 H, Lymphocytes % (Manual) 14, Monocytes % (Manual) 2, Metamyelocytes % 1.0, Nucleated RBCs 3, Platelet Estimate Marked decrease, Poikilocytosis 1+, Acanthocytes (Spur) 1+ 12/19/19 05:30: Sodium 144, Potassium 3.5, Chloride 103, Carbon Dioxide 35 H, Anion Gap 9.5, BUN 38 H, Creatinine 1.00 D, Estimated Creat Clear 47, Estimated GFR 74, Est GFR ( Amer) 89 D, Glucose 117 H D, Calcium 9.0, Magnesium 2.6 H, Total Bilirubin 7.9 H, AST 190 H, ALT 138 H, Alkaline Phosphatase 234 H, Total Protein 5.5 L, Albumin 2.7 L, Globulin 2.8, Albumin/Globulin Ratio 1.0 L I & O for Last 24 hours: Intake & Output 12/17/19 12/18/19 12/19/19 12/20/19 11:59 11:59 11:59 11:59 Intake Total 3203 / 3203 1712 / 1712 0 / 0 Output Total 350 / 350 950 / 950 200 / 200 Balance 2853 / 2853 762 / 762 -200 / -200 Weight 107 lb 1 oz 108 lb 0.424 oz Microbiology Reports for the Last 24 Hours: Microbiology 12/17/19 23:25 Urine,Catheterized Urine Culture - Final NO GROWTH AFTER 48 HOURS 12/17/19 22:00 Blood Blood Culture - Preliminary NO GROWTH AFTER 48 HOURS 12/17/19 22:00 Blood Blood Culture - Preliminary NO GROWTH AFTER 48 HOURS Narrative: Physical exam is unchanged, scattered rashes, previously noted lymphadenitis. Lungs have poor movement of air. No crackles. Heart rate regular. Abdomen soft, organomegaly noted. Poor distal perfusion. Neurologic exam notable for weakness. Assessment and Plan (1) Severe sepsis with acute organ dysfunction Current visit: Yes Status: Acute Category: Medical Code(s): A41.9 - Sepsis, unspecified organism; R65.20 - Severe sepsis without septic shock (2) CAP (community acquired pneumonia) Current visit: Yes Status: Acute Qualifiers: Laterality: unspecified laterality Qualified Code(s): J18.9 - Pneumonia, unspecified organism Category: Medical Code(s): J18.9 - Pneumonia, unspecified organism (3) Mediastinal adenopathy Current visit: Yes Status: Acute Category: Medical Code(s): R59.0 - Localized enlarged lymph nodes (4) Failure to thrive Current visit: Yes Status: Acute Category: Medical (5) Thrombocytopenia Current visit: Yes Status: Acute Category: Medical Code(s): D69.6 - Thrombocytopenia, unspecified (6) JOSELINE (acute kidney injury) Current visit: Yes Status: Acute Category: Medical Code(s): N17.9 - Acute kidney failure, unspecified (7) Elevated C-reactive protein (CRP) Current visit: Yes Status: Acute Category: Medical Code(s): R79.82 - Elevated C-reactive protein (CRP) (8) Elevated LFTs Current visit: Yes Status: Acute Category: Medical Code(s): R79.89 - Other specified abnormal findings of blood chemistry (9) Elevated erythrocyte sedimentation rate Current visit: Yes Status: Acute Category: Medical Code(s): R70.0 - Elevated erythrocyte sedimentation rate (10) Cancer cachexia Current visit: Yes Status: Acute Category: Medical Code(s): R64 -
--- NOTE | 2019-12-20 04:42 | PC.NURSE ---
A&OX2. PT HAS NOT TALKED MUCH THIS SHIFT, AND SPEECH IS SLURRED. PT SLEEPING T/O MAJORITY OF SHIFT. PT HAS TOLERATED WATER THIS SHIFT, BUT REFUSED ANY FOOD. PT STATED HE HURTING ALL OVER AT BEGINNING OF SHIFT. THIS NURSE OFFERED PT SOMETHING FOR PAIN AND HE STATED I DIDN'T WANT ANYTHING. PT ALSO REFUSES TO LET STAFF TURN HIM. PT HAS HAD NO OTHER COMPLAINTS THUS FAR. F/C PRESENT DRAINING DARK ORANGE URINE. VSS WILL CONTINUE TO MONITOR.
[2019-12-20 05:00] VITALS: BMI 16.6
[2019-12-20 08:00] VITALS: BP 139/80; PULSE 94; RESP 18; TEMP 36.5; O2SAT 91
[2019-12-20 12:00] VITALS: BP 141/78; PULSE 87; RESP 16; TEMP 36.5; O2SAT 91
[2019-12-20 12:08] LABS: Hep A Ab, IgM Negative (Negative); Hepatitis B Core Antibody IgM Negative (Negative); Hepatitis B Surface Antigen Negative (Negative)
[2019-12-20 12:13] LABS: Hepatitis C Antibody <0.1 s/co ratio (0.0-0.9)
--- NOTE | 2019-12-20 15:26 | PC.NURSE ---
PATIENT HAS REFUSED BREAKFAST AND LUNCH THUS FAR OF SHIFT. PATIENT HAS REFUSED TO BE TURNED Q2HRS, ALLOWED TO BE ROTATED TO LEFT SIDE. PATIENT HAS TAKEN SMALL SIPS OF WATER AND ALLOWED THIS RN TO PROVIDE HIM WITH ICE CHIPS. THIS RN UPON READING DR. MUJICA'S H&P NOTICED THAT IT STATED WOULD BE AMENABLE TO PATIENT'S FAMILY COMING TO VISIT GIVEN GOALS OF CARE. THIS RN PHONED NICK LEE RN AND INQUIRED ABOUT FAMILY VISITING. PER NICK Jimenez RN AND MARY Hunter RN, IF FAMILY CALLS TO SEE PATIENT IT WILL BE OKAY. HAVE MD STATE PATIENT IS UNDER PALLIATIVE CARE.
[2019-12-20 15:49] VITALS: BP 137/77; PULSE 88; RESP 18; TEMP 36.4; O2SAT 94
--- NOTE | 2019-12-20 18:40 | PC.NURSE ---
DURING AN ADL CHECK, THIS RN FOUND PATIENT FIDGETING WITH HIS CATHETER. THIS RN ASKED PATIENT WHAT HE WAS DOING AND PATIENT STATED THAT HE WAS GOING HOME. THAT HE WAS DONE. THIS RN INFORMED HIM THAT THERE IS NO ONE AT THIS TIME TO TAKE HIM HOME. PATIENT SETTLED DOWN AND RELAXED IN BED. PATIENT RECEIVED A PHONE CALL FROM A FAMILY MEMBER AND PATIENT REFUSED TO SPEAK HER. THIS RN WAS ABLE TO ENCOURAGE PATIENT TO ALLOW STAFF TO TURN HIM AND PROVIDE HIM ORAL CARE. PATIENT TOLERATED MOVEMENT AND ORAL CARE WELL. NO OTHER CONCERNS AT THIS TIME.
[2019-12-20 20:00] VITALS: BP 148/78; PULSE 89; RESP 25; TEMP 36.6; O2SAT 92
[2019-12-21] VITALS: BP 141/81; PULSE 92; RESP 22; TEMP 36.7; O2SAT 91
--- NOTE | 2019-12-21 03:20 | PC.NURSE ---
PT ONLY ORIENTED TO SELF, ABLE TO STATE NAME BUT NOT . PT'S BEHAVIOR NOTED VERY LETHARGIC WITH NO ENERGY. RESTED WELL WITH EYES CLOSED FOR MAJORITY OF THIS SHIFT THUS FAR. PT OPENS HIS EYES WHEN SPOKEN TO AND FOLLOWS COMMANDS APPROPRIATELY. PT REFUSED ALL FOOD AND DRINK FOR THIS RN. FLUIDS INFUSING AT 75 ML/HR RATE, PT TOLERATING WELL. NO C/O PAIN WHEN ASKED. DENIES N/V/D. SIGNIFICANT EDEMA NOTED TO LUE. ELEVATED LUE ON PILLOW T/O SHIFT. FC SITE REMAINS C/D/I. URINE NOTED CLEAR, DARK ANABELLE IN COLOR WITH NORMAL ODOR. PT TOLERATED RA WELL WITH NO C/O SOA. HOB REMAINED SLIGHTLY ELEVATED T/O SHIFT. BILATERAL LUNG SOUNDS NOTED CLEAR T/O UPON AUSCULTATION. HEEL PROTECTORS IN PLACE ON BLE. THIS RN PLACED A PILLOW UNDER HEELS TO FLOAT THEM OFF THE MATTRESS. VSS. REMAINS SAFE. CALL LIGHT WITHIN REACH. Q2H TURN. WILL CONTINUE TO MONITOR.
--- NOTE | 2019-12-21 03:28 | PC.NURSE ---
DAY SHIFT RN REPORTED A PIECE OF THE PT'S TOOTH WAS FOUND TODAY WHILE PROVIDING CARE. ORAL CARE CONTINUED TO BE PROVIDED T/O THIS SHIFT.
[2019-12-21 04:00] VITALS: BP 154/76; PULSE 91; RESP 22; TEMP 36.7; O2SAT 90
[2019-12-21 05:00] VITALS: BMI 16.6
--- NOTE | 2019-12-21 07:28 | SW/DCPLANNER ---
SPOKE WITH SISTER OF THIS PATIENT THIS AM REGARDING DISCHARGE PLANNING: I EXPLAINED TO HER THAT HE IS GOING TO NEED A LOT OF CARE AND HOSPICE WOULD BE ABLE TO ASSIST WITH THAT BUT WOULD NOT BE WITH HIM AROUND THE CLOCK... SOPHY STATED THERE IS NO ONE TO STAY WITH HIM AND HE WOULD NEED TO GO SOMEWHERE AND SHE WANTED [facility] BUT THE PATIENT STATED HE DOES NOT WANT TO GO THERE BECAUSE HIS BROTHER IS THERE AND HE DOESN'T WANT TO ADD ANY ADDITIONAL WORRY OR BURDEN TO HIM... I SUGGESTED [facility] AND SHE SAID THAT WOULD BE OK... I WILL SEE IF THEY HAVE ANY BEDS AND MOVE FORWARD WITH THAT...
[2019-12-21 08:00] VITALS: BP 142/90; PULSE 87; RESP 16; TEMP 36.7; O2SAT 92
--- NOTE | 2019-12-21 08:31 | HMH.ACPN2 ---
Internal Medicine - PN: Subj *Date: 12/21/19 *Time: 08:31 Interval history: Patient remains weak, has otherwise minimal complaints. Has not been eating well. Exam Vital signs and Labs for Last 24 Hours: Temp Pulse Resp BP Pulse Ox 98.1 F 91 H 22 154/76 H 90 L 12/21/19 04:00 12/21/19 04:00 12/21/19 04:00 12/21/19 04:00 12/21/19 04:00 Laboratory Results - last 24 hr 12/18/19 16:15: Hepatitis A IgM Ab Negative, Hep Bs Antigen Negative, Hep B Core IgM Ab Negative, Hepatitis C Antibody <0.1 I & O for Last 24 hours: Intake & Output 12/18/19 12/19/19 12/20/19 12/21/19 11:59 11:59 11:59 11:59 Intake Total 3203 / 3203 1712 / 1712 1312 / 1312 886 / 886 Output Total 350 / 350 950 / 950 500 / 500 600 / 600 Balance 2853 / 2853 762 / 762 812 / 812 286 / 286 Weight 107 lb 1 oz 108 lb 0.424 oz 112 lb 2 oz 112 lb 8 oz Microbiology Reports for the Last 24 Hours: Microbiology 12/17/19 22:13 Throat Group A Streptococcus Screen (JUSTIN) - Final Negative for Group A Streptococcus. Narrative: Globally weak, malnourished appearing. Has rash on chest and arms and legs consistent with his thrombocytopenia. Respiratory effort symmetric bilaterally, somewhat weak. Heart rate regular. Abdomen soft, sensation of doughy masses around the liver and spleen. Edema is not noted. He has poor tissue perfusion in all 4 extremities. But he is not cold or mottled. Able to move arms and legs well, oriented. Pleasant. Assessment and Plan (1) Severe sepsis with acute organ dysfunction Current visit: Yes Status: Acute Category: Medical Code(s): A41.9 - Sepsis, unspecified organism; R65.20 - Severe sepsis without septic shock (2) CAP (community acquired pneumonia) Current visit: Yes Status: Acute Qualifiers: Laterality: unspecified laterality Qualified Code(s): J18.9 - Pneumonia, unspecified organism Category: Medical Code(s): J18.9 - Pneumonia, unspecified organism (3) Mediastinal adenopathy Current visit: Yes Status: Acute Category: Medical Code(s): R59.0 - Localized enlarged lymph nodes (4) Failure to thrive Current visit: Yes Status: Acute Category: Medical (5) Thrombocytopenia Current visit: Yes Status: Acute Category: Medical Code(s): D69.6 - Thrombocytopenia, unspecified (6) JOSELINE (acute kidney injury) Current visit: Yes Status: Acute Category: Medical Code(s): N17.9 - Acute kidney failure, unspecified (7) Elevated C-reactive protein (CRP) Current visit: Yes Status: Acute Category: Medical Code(s): R79.82 - Elevated C-reactive protein (CRP) (8) Elevated LFTs Current visit: Yes Status: Acute Category: Medical Code(s): R79.89 - Other specified abnormal findings of blood chemistry (9) Elevated erythrocyte sedimentation rate Current visit: Yes Status: Acute Category: Medical Code(s): R70.0 - Elevated erythrocyte sedimentation rate (10) Cancer cachexia Current visit: Yes Status: Acute Category: Medical Code(s): R64 - Cachexia (11) Hypoalbuminemia due to protein-calorie malnutrition Current visit: Yes Status: Acute Category: Medical Code(s): E88.09 - Other disorders of plasma-protein metabolism, not elsewhere classified; E46 - Unspecified protein-calorie malnutrition (12) Hyperbilirubinemia Current visit: Yes Status: Acute Category: Medical Code(s): E80.6 - Other disorders of bilirubin metabolism (13) Inguinal hernia of left side without obstruction or gangrene Current visit: Yes Status: Acute Category: Medical Code(s): K40.90 - Unilateral inguinal hernia, without obstruction or gangrene, not specified as recurrent - Assessment and plan all Dx Assessment and Plan for all problems:: 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 Patient is appropriate for hospice care. This will be initiated. We will also look for long-term care placement given his global weakness an
--- NOTE | 2019-12-21 09:01 | HMH.ACPN ---
Internal Medicine - PN: Subj *Date: 12/21/19 *Time: 09:01 Exam Vital signs and Labs for Last 24 Hours: Temp Pulse Resp BP Pulse Ox 98.1 F 87 16 142/90 H 92 L 12/21/19 08:00 12/21/19 08:00 12/21/19 08:00 12/21/19 08:00 12/21/19 08:00 Laboratory Results - last 24 hr 12/18/19 16:15: Hepatitis A IgM Ab Negative, Hep Bs Antigen Negative, Hep B Core IgM Ab Negative, Hepatitis C Antibody <0.1 I & O for Last 24 hours: Intake & Output 12/18/19 12/19/19 12/20/19 12/21/19 23:59 23:59 23:59 23:59 Intake Total 3313 / 3313 1602 / 1602 1841 / 1841 417 / 417 Output Total 1050 / 1050 450 / 450 300 / 300 600 / 600 Balance 2263 / 2263 1152 / 1152 1541 / 1541 -183 / -183 Weight 49 kg 50.859 kg 51.029 kg Microbiology Reports for the Last 24 Hours: Microbiology 12/17/19 22:13 Throat Group A Streptococcus Screen (JUSTIN) - Final Negative for Group A Streptococcus. Assessment and Plan (1) Severe sepsis with acute organ dysfunction Current visit: Yes Status: Acute Category: Medical Code(s): A41.9 - Sepsis, unspecified organism; R65.20 - Severe sepsis without septic shock (2) CAP (community acquired pneumonia) Current visit: Yes Status: Acute Qualifiers: Laterality: unspecified laterality Qualified Code(s): J18.9 - Pneumonia, unspecified organism Category: Medical Code(s): J18.9 - Pneumonia, unspecified organism (3) Mediastinal adenopathy Current visit: Yes Status: Acute Category: Medical Code(s): R59.0 - Localized enlarged lymph nodes (4) Failure to thrive Current visit: Yes Status: Acute Category: Medical (5) Thrombocytopenia Current visit: Yes Status: Acute Category: Medical Code(s): D69.6 - Thrombocytopenia, unspecified (6) JOSELINE (acute kidney injury) Current visit: Yes Status: Acute Category: Medical Code(s): N17.9 - Acute kidney failure, unspecified (7) Elevated C-reactive protein (CRP) Current visit: Yes Status: Acute Category: Medical Code(s): R79.82 - Elevated C-reactive protein (CRP) (8) Elevated LFTs Current visit: Yes Status: Acute Category: Medical Code(s): R79.89 - Other specified abnormal findings of blood chemistry (9) Elevated erythrocyte sedimentation rate Current visit: Yes Status: Acute Category: Medical Code(s): R70.0 - Elevated erythrocyte sedimentation rate (10) Cancer cachexia Current visit: Yes Status: Acute Category: Medical Code(s): R64 - Cachexia (11) Hypoalbuminemia due to protein-calorie malnutrition Current visit: Yes Status: Acute Category: Medical Code(s): E88.09 - Other disorders of plasma-protein metabolism, not elsewhere classified; E46 - Unspecified protein-calorie malnutrition (12) Hyperbilirubinemia Current visit: Yes Status: Acute Category: Medical Code(s): E80.6 - Other disorders of bilirubin metabolism (13) Inguinal hernia of left side without obstruction or gangrene Current visit: Yes Status: Acute Category: Medical Code(s): K40.90 - Unilateral inguinal hernia, without obstruction or gangrene, not specified as recurrent The patient's infection will respond to the chosen ABx?: Yes Is the patient receiving the right drug, dose, and route?: Yes Could a more targeted ABx be ordered?: No
--- NOTE | 2019-12-21 10:54 | SW/DCPLANNER ---
Addendum entered by Uzma Meyer 12/21/19 14:00: INFORMATION WAS FAXED TO [facility] AND PATIENT HAS BEEN ACCEPTED[facility], WILL DISCHARGE THERE LATER TODAY... Original Note: RECEIVED REFERRAL FOR THIS PATIENT FOR A HOSPICE CONSULT.... I SENT REFERRAL TO [facility]PICE [facility]IG[facility] AND THEY CAME TO EVALUATE HIM AND HE IS APPROPRIATE FOR THEIR SERVICES AND HE IS GOING TO NEED PLACEMENT SINCE HE LIVES ALONE AND HAS NO ONE TO CARE FOR HIM AT HOME... I HAVE CALLED [facility] PER PATIENT CHOICE AND SHE IS WAITING ON THE PACKET AND IF ACCEPTED HE MAY GO THERE LATER TODAY AND IF SHE DOESN'T ACCEPT HIM I WILL LOOK FOR ANOTHER BED...
[2019-12-21 11:44] VITALS: BP 145/93; PULSE 99; RESP 16; TEMP 36.4; O2SAT 90
--- NOTE | 2019-12-21 12:58 | DIET.NUTRFU ---
Pt to receive palliative care, care plan in search of placement. He has refused meals since saturday, having ensure PRN. Has had a 6# weight gain t/o stay- 4 days. Will continue to monitor nutritional status and attempt to meet needs, provide pleasure feeding.
--- NOTE | 2019-12-21 14:02 | HMH.DCSUM ---
General - General Admission date:: 12/18/19 Discharge date: 12/21/19 HPI HPI: 69-year-old gentleman with no significant past medical history per his report, on occasional Advil at home, and extensive tobacco use history, who presented to the ER last night via EMS due to weakness and jaundice. Patient's family, nephew checks on him regularly, contacted EMS due to concern for patient being more weak, having a cough, body aches, and jaundice. Patient states he came to the hospital because he tried to start his lawnmower and was too weak to mow the lawn. Upon presentation to the ER he was found to have sepsis criteria with tachycardia greater than 90, tachypnea greater than 20, and findings of pneumonia on chest x-ray. Labs significant for elevated creatinine with unknown baseline, elevated liver enzymes, thrombocytopenia, and elevated bilirubin. Further work-up including CT of chest abdomen and pelvis showed diffuse lymphadenopathy in abdomen with significant burden of mediastinal masses suspicious of neoplastic process. Patient states he lives by himself. Of note his brother used to live with him was a patient several months of go of ours at [facility]. He is currently at a jail due to debility and failure to thrive. He states he has had a cough for more than 4 to 5 months. Had an extensive smoking history until recently when he quit smoking somewhere between 2 and 5 months ago. Reports poor appetite, upset stomach. Overall states he just does not feel well. Feels more tired with some intermittent aches and pains in his chest and extremities. Cough reported as nonproductive. Has had no travel or contact with known COVID cases. Is afebrile. Not requiring oxygen. With fluid resuscitation overnight, patient appears more comfortable and in less distress. Initiated on antibiotics for pneumonia. Given endorgan damage, elevated lactate, and vitals consistent with Sirs, patient admitted for severe sepsis. Hospital Course Hospital Course: Patient was admitted, extensive workup was done revealing significant pancytopenia, and CT scan findings consistent with widespread lymphoma. Patient and his family were consulted, given his age, multiple comorbidities and extensive functional decline we did not feel that he was a candidate for aggressive chemotherapy. Patient and family agreed. As a result, we investigated long-term care placement with hospice, patient was accepted at the [facility] today and he will be transferred there. He maintains DNR status, palliative care, and hospice will be involved. Diet will be as tolerated. no further IV medications or labs. Objective Vital signs: Temp Pulse Resp BP Pulse Ox 97.6 F 99 H 16 145/93 H 90 L 12/21/19 11:44 12/21/19 11:44 12/21/19 11:44 12/21/19 11:44 12/21/19 11:44 Narrative: - Constitutional moderate distress, cachectic, chronically ill appearing Comments: Speech difficult to understand, disheveled, bitemporal wasting, unkempt - *Routine HEENT Exam Head: Present: normocephalic Eye: Present: EOMI, PERRL ENT: Present: mucous membranes moist Comments: Poor dentition, loss of periorbital fat. - *Routine Neck Exam Present: supple, lymphadenopathy Comments: Supraclavicular lymphadenopathy on right side of neck - Routine Chest/Breast/Axilla Exam Chest wall: Absent: tenderness (Prominent ribs) - *Routine Respiratory Exam Present: prolonged expiratory phase Comments: Diffuse wheeze, rhonchi, gurgles in the lungs bilaterally that are worse in the posterior lung alexnader. - *Routine Cardiovascular Exam Present: RRR - *Routine Abdominal Exam Present: soft, normoactive bowel sounds, tenderness (Diffuse nonfocal tenderness, no appreciable organomegaly.), hernia (Inguinal hernia that is reducible and nonpainful) - *Routine Exam Penile: Absent: swelling, lesions Scrotal: Present: hernia (non-Tender left-sided inguinal
--- NOTE | 2019-12-21 15:27 | PC.NURSE ---
family requested pt leave in a gown because his clothes were dirty and they did no bring him any clean clothes.
== END 2019-12-21 15:28 | disposition hospice, inpatient (51) | DRG 193 ==
LOC: ER 22:50 → 2ND 12-18 01:31 → ICU 12-18 14:39 → 2ND 12-19 12:26
PROVIDERS: Admitting Provider Internal Medicine Adolescent Medicine; Emergency Provider Emergency Medicine; Visit Provider Internal Medicine Adolescent Medicine
DX: J18.9 Pneumonia, unspecified organism (principal); R65.20 Severe sepsis without septic shock; N17.9 Acute kidney failure, unspecified; C85.98 Non-Hodgkin lymphoma, unspecified, lymph nodes of multiple sites; R64 Cachexia; Z68.1 Body mass index [BMI] 19.9 or less, adult; E46 Unspecified protein-calorie malnutrition; R62.7 Adult failure to thrive; K40.90 Unilateral inguinal hernia, without obstruction or gangrene, not specified as recurrent; D69.6 Thrombocytopenia, unspecified
CPT/HCPCS: 36415; 70371; 71045; 71250; 74177; 80053; 80074; 81001; 82140; 82150; 83605; 83615; 83690; 83735; 83880; 84436; 84443; 84484; 84550; 85007; 85025; 85610; 85651; 86140; 87040; 87086; 87275; 87276; 87430; 92611; 93005; 94640; 99285; J1956; Q9967; U0003